=== PATIENT | female | born 1980 | race Two or more races ===

== ENCOUNTER 2021-11-29 07:31 | Outpatient (CLI) | payer OTHER | END 2021-11-29 07:37 | disposition home or self-care (01) | LOC: NUCLEAR 07:31 | PROVIDERS: ATTEND General Practice | DX: E05.90 Thyrotoxicosis, unspecified without thyrotoxic crisis or storm (principal) ==

== ENCOUNTER → 2022-04-18 | Day surgery (SDC) | payer OTHER ==
[~2022-04-18] VITALS: Ht 160 cm; Wt 97.1 kg
[~2022-04-18] MED LIST: ATORVASTATIN CA10 MG PO; LIPOCHOL PLUS0.5 MG PO; PROPRANOLOL HCL10 MG PO; TAPAZOLE5 MG PO; TRULICITY3 MG/0.5 M; XIGDUO XR 5 MG1 EAC1 PO; ZESTRIL5 MG PO
== END | disposition home or self-care (01) ==
LOC: ADM 04-16 12:45 → CIR.AMB 07:00
PROVIDERS: ATTEND Specialist
DX: C53.0 Malignant neoplasm of endocervix (principal); Z20.822 Contact with and (suspected) exposure to COVID-19; Z91.013 Allergy to seafood; I10 Essential (primary) hypertension; E11.9 Type 2 diabetes mellitus without complications; E03.9 Hypothyroidism, unspecified; E78.5 Hyperlipidemia, unspecified